=== PATIENT | male | born 1945 | race Asian ===

== ENCOUNTER 2017-04-15 15:01 | Emergency (ER) | payer OTHER ==
[2017-04-15 15:21] VITALS: PULSE 78
--- NOTE | 2017-04-15 15:44 | CPEKG ---
Heart Rate: 87 RR Interval: 690 P-R Interval: 168 QRSD Interval: 84 QT Interval: 344 QTC Interval: 414 P Chelsea: 50 QRS Chelsea: 54 T Wave Chelsea: 20 EKG Severity - BORDERLINE ECG - EKG Impression: SINUS RHYTHM EKG Impression: BORDERLINE INFERIOR Q WAVES Electronically Signed By: Rasheed Wan 16-Apr-2017 11:44:22
[2017-04-15 15:52] LABS: PLATELET COUNT 207 10^3/uL (150-400)
[2017-04-15] MEDS ORDERED: ACETAMINOPHEN/CODEINE 300/30MG TAB PO ONE ×2 (16:08→17:53)
[2017-04-15] MEDS ORDERED: NS 1,000 ML IV ONE (16:08)
[2017-04-15] MEDS ORDERED: IOPAMIDOL (ISOVUE-300) 100 ML BTL ONE (16:42)
--- NOTE | 2017-04-15 16:56 | EDPHY ---
HPI/HX/ROS/PE/MDM Narrative: CHIEF COMPLAINT: Lower back pain, syncope HISTORY OF PRESENT ILLNESS: The patient is a 72 y/o male with a history of diabetes complaining of lower back pain after a syncopal episode last night. He has been constipated for a few days. Last night he was feeling bloated and nauseated as he went to sleep. The bloating was interfering with his sleep so he got up and went to the bathroom. While on the toilet he was unable to have a bowel movement or pass gas. He burped a few times and stood up to go to the sink. As he turned, he lost consciousness and fell flat onto his back. He was unconscious for a few minutes and his reports that one eye was normal but the other eye was turned back. When he regained consciousness, he tried to sit up and felt a spasm in his back. He then vomited a few times. He stood up, took antacids and Tylenol, and went back to bed. This morning he still had lower back pain so he went to urgent care. Urgent care directed him to the ED. He remains bloated. He denies chest pain, lower back pain, shortness of breath, diarrhea, or any other associated symptoms. He denies cardiac history. REVIEW OF SYSTEMS: Aside from elements discussed in the HPI, a comprehensive 10-point review of systems was reviewed and is negative. PAST MEDICAL HISTORY: Diabetes SOCIAL HISTORY: at bedside, works in [employer], lives in [place] VITAL SIGNS: Reviewed by me GENERAL: Well-developed, well-nourished, resting comfortably in no respiratory distress. HEENT: Atraumatic. Eyes: No icterus, no injection. Mouth: moist mucous membranes. No erythema or lesions. Neck: supple with no adenopathy. No head trauma. LUNGS: Clear to auscultation bilaterally, no wheezes, rhonchi or rales. CARDIAC: Regular rate and rhythm, no rubs, murmurs or gallops. ABDOMEN: Mildly distended abdomen, soft, mild tenderness but no guarding or rebound. BACK: No CVA tenderness. Paraspinal tenderness and area of discomfort at upper lspine. No definitive midline tenderness. EXTREMITIES: No trauma. No edema. Range of motion is normal throughout. NEURO: Alert and oriented, Motor 5/5 in lower extremities. Sensation intact. SKIN: Warm and dry, no rash. PSYCHIATRIC: Normal mentation, no agitation. ED Course: 12-LEAD EKG: Please see the full report in [facility]. My interpretation: Normal sinus rhythm CT: Abdominal CT was obtained. I viewed the images myself on the PACS system. My interpretation of the images is: T-12 compression fracture. The radiologist interpretation is T-12 compression fracture. I discussed the CT findings with the patient. The patient presents with lower back pain after a fall. He has been constipated for a few days. Last night he got up to use the restroom and loss consciousness , falling to the ground. He vomited several times upon regaining consciousness. It is unclear how long he was unconscious or what caused him to lose consciousness. He currently is still bloated and has lower back pain. He denies chest pain, shortness of breath, or other cardiac indicators. He is mentating and moving normally without signs of neurologic deficits. Plan for EKG, labs, and CT of abdomen. 1649: The patient's EKG is normal and his troponin is negative. This indicates a cardiac cause for his symptoms is unlikely. 1734: I spoke with the radiologist. The patient's CT shows no intestinal abnormalities. There is a T-12 compression fracture. I feel he is safe to be released with pain medication for his fracture. Follow-up instructions and return precautions given. The patient agrees to this course of action. MDM: After obtaining the patients history and performing an examination, differential diagnosis considered included but was not limited to vasovagal syncope, arrhythmia, dehydration, and blood loss. Abdominal pain differential included appendicitis, cholecystitis, gastritis, pancreatitis, kidney stones, bowel obstruction, diverticulitis. - Data Points Imaging Results: Impression: 1. No significant abnormality seen within the abdomen and pelvis to explain patient's symptoms. 2. Mobile cecum transversely oriented in the upper abdomen anteriorly. Mild constipation is suspected. 3. Compression fracture T12 superior endplate with mild retropulsion posterior superior corner. This appears to be recent. Apparently, the patient fell last evening. Consider DEXA scan at some point to evaluate underlying bone mineral density has clinically directed. 4. Small hiatal hernia with mild thickening of the distal esophagus small nodes. Consider mild distal esophagitis. Findings discussed with Citlaly Crowe MD at 17:13 hour, 04/15/2017. Dictated By: Dirk Pool MD Imaging: Discussed imaging studies w/ anesthesia tech Radiologist Laboratory Results: Laboratory Results 04/15/17 15:40 04/15/17 15:40 Medications Given: Discontinued Medications Acetaminophen/Codeine Phosphate (Tylenol #3) 1 tab PO EDNOW ONE Stop: 04/15/17 16:09 Last Admin: 04/15/17 16:55 Dose: 1 tab Acetaminophen/Codeine Phosphate (Tylenol #3) 2 tab PO EDNOW ONE Stop: 04/15/17 17:54 Last Admin: 04/15/17 18:03 Dose: 2 tab Cyclobenzaprine HCl (Flexeril 10 Mg Prepack#3) 1 btl TAKEHOME EDNOW ONE Stop: 04/15/17 17:54 Last Admin: 04/15/17 18:02 Dose: 1 btl General Time Seen by Provider: 04/15/17 15:43 Initial Vital Signs: Initial Vital Signs Temperature (C) 36.6 C 04/15/17 15:15 Heart Rate 78 04/15/17 15:15 Respiratory Rate 17 04/15/17 15:15 O2 Sat (%) 98 04/15/17 15:15 O2 Delivery Mode Room Air Allergies/Adverse Reactions: No Known Allergies Allergy (Verified 04/21/17 12:52) Home Medications: Medication Instructions Recorded Glipizide/Metformin 10/16/12 Htn Med 10/16/12 Simvastatin 10/16/12 Vitorza 10/16/12 Acetaminophen/Codeine 300/30Mg 1 - 2 each PO Q6 PRN #10 tab 04/15/17 [Tylenol #3 (*)] Cyclobenzaprine [Flexeril 10 MG 10 mg PO TID PRN #15 tab 04/15/17 (*)] Departure - Departure Disposition: Home, Routine, Self-Care Clinical Impression: T12 compression fracture, Vasovagal syncope Constipation Qualifiers: Constipation type: unspecified constipation type Qualified Code(s): K59.00 - Constipation, unspecified Condition: Good Instructions: Cyclobenzaprine (By mouth), Constipation (ED), Vertebral Compression Fracture (ED), Syncope (ED), Syncope in Older Adults (ED) Additional Instructions: 1. Take Tylenol with Codeine and Flexeril as directed as needed for pain. Use your laxative and drink milk as needed for constipation. 2. Follow-up with your primary care provider for ongoing treatment of your spine fracture. 3. Return to the ED for any numbness or tingling or other worsening of condition. Referrals: Jim Gil MD [Primary Care Provider] - As per Instructions Prescriptions: Acetaminophen/Codeine 300/30Mg [Tylenol #3 (*)] 1 - 2 each PO Q6 PRN #10 tab PRN Reason: pain Cyclobenzaprine [Flexeril 10 MG (*)] 10 mg PO TID PRN #15 tab PRN Reason: Spasms Report Scribed for: Citlaly Crowe Report Scribed by: Jennifer Haines Date of Report: 04/15/17 Time of Report: 16:56 Physician Review and Approval Statement: Portions of this note were transcribed by a vice president medical affairs. I personally performed a history, physical exam, medical decision making, and confirmed accuracy of information the transcribed note.
[2017-04-15] MEDS ORDERED: CYCLOBENZAPRINE 10MG PREPACK#3 BTL TAKEHOME ONE (17:53)
[2017-04-15 18:10] VITALS: BP 171/85; RESP 18; TEMP 98.2; O2SAT 93
== END 2017-04-15 18:09 | disposition home or self-care (01) ==
DX: M48.54XA Collapsed vertebra, not elsewhere classified, thoracic region, initial encounter for fracture (principal); E11.9 Type 2 diabetes mellitus without complications; K59.00 Constipation, unspecified; R55 Syncope and collapse; Z79.84 Long term (current) use of oral hypoglycemic drugs
CPT/HCPCS: 74177; 93005; 99285; Q9967

== ENCOUNTER 2017-04-21 12:50 | Emergency (ER) | payer OTHER ==
[2017-04-21 12:56] VITALS: RESP 18; TEMP 97.3
--- NOTE | 2017-04-21 13:25 | EDPHY ---
H & P Stated Complaint: constipation HPI/ROS: CHIEF COMPLAINT: Constipation HISTORY OF PRESENT ILLNESS: The patient is a 72 y/o male with a history of diabetes complaining of constipation for the past 7 days. On 04/14/17, he had several small bowel movements. On 04/15 he vomited and had a syncopal episode after standing up and presented to the ED. An abdominal CT preformed during this visit did not reveal any intestinal abnormalities. There was a moderate amount of stool in his colon. Due to the syncopal episode he developed back pain and was prescribed Tylenol with codeine and a muscle relaxant. He stopped taking Tylenol #3 two days ago. Denies vomiting or syncope since ED visit. Since his ED visit 6 days ago, he has tried using suppositories, a fleets enema on and 04/20/17, smoothlax (polyethylene), liquid magnesium nitrate, and raisin bran for his constipation without any relief. In the past he has occasionally had episodes of constipation. His back is still painful (no leg weakness or numbness, no difficulty urinating). Denies urinary complaints, chest pain, shortness of breath, abdominal pain or other pertinent symptoms. Prior medical records reviewed including ED visit on 04/15/[address] Crowe. REVIEW OF SYSTEMS: A ten point review of systems was performed and is negative with the exception of the items mentioned in the HPI. Past medical history: Diabetes Past surgical history: Denies Family history: Denies Social history: Retired professor of chemistry; works in [employer] Lives in [facility] General Appearance: Alert. Vital signs reviewed. Eyes: Pupils equal and round, no conjunctival injection, no discharge. Anicteric. ENT, Mouth: Mucous membranes are moist, no oropharyngeal erythema or edema. Neck: No lymphadenopathy, supple. Respiratory: Lungs are clear to auscultation; no wheezes, rales, or rhonchi. Cardiovascular: Regular rate and rhythm; no murmur, rub, or gallop. Gastrointestinal: Abdomen is mildly distended. It is soft and nontender, no masses or organomegaly, bowel sounds normal. Skin: Warm and dry, no rashes on exposed skin, normal color. Back: Nontender to palpation over the thoracolumbar spine. No CVAT. Rectal: No stool within reach. Normal rectal tone. Extremities: No lower extremity edema, no calf tenderness or swelling. Neurological: Alert and oriented. Moving all four extremities easily and equally. Psychiatric: Normal affect. - Personal History Current Tetanus/Diphtheria Vaccine: Yes - Medical/Surgical History Hx Asthma: Yes Hx Chronic Respiratory Disease: No Hx Diabetes: Yes Hx Cardiac Disease: No Hx Renal Disease: No Hx Cirrhosis: No Hx Alcoholism: No Hx HIV/AIDS: No Hx Splenectomy or Spleen Trauma: No Other PMH: diabetes - Social History Smoking Status: Never smoked Constitutional: Initial Vital Signs Temperature (C) 36.3 C 04/21/17 12:54 Heart Rate 90 04/21/17 12:54 Respiratory Rate 18 04/21/17 12:54 Blood Pressure 152/100 H 04/21/17 12:54 O2 Sat (%) 95 04/21/17 12:54 O2 Delivery Mode Room Air Allergies/Adverse Reactions: No Known Allergies Allergy (Verified 04/21/17 12:52) Home Medications: Medication Instructions Recorded Glipizide/Metformin 10/16/12 Htn Med 10/16/12 Simvastatin 10/16/12 Vitorza 10/16/12 Acetaminophen/Codeine 300/30Mg 1 - 2 each PO Q6 PRN #10 tab 04/15/17 [Tylenol #3 (*)] Cyclobenzaprine [Flexeril 10 MG 10 mg PO TID PRN #15 tab 04/15/17 (*)] Medical Decision Making - Diagnostics Imaging: I viewed and interpreted images myself ED Course/Re-evaluation: The patient is a 72 y/o male with a history of diabetes presenting with inability to have a bowel movement for 7 days. On exam his abdomen is mildly distended and I am unable to reach stool on his rectal exam. During an ED visit on 04/15/17, 6 days ago, he had an abdominal CT that revealed no intestinal abnormalities and moderate amount of stool in his colon. Plan on soap enema. 300mL PO Magnesium Citrate administered. 1525: Reassessed patient; he has been unable to have a bowel movement after the enema and magnesium citrate. Plan on abdominal x-ray. 1556: Abdominal x-ray reveals a large amount of stool in the colon without any obstruction. 1559: Reassessed patient and discussed imaging findings. I have recommended that he takes Colace, Miralax, and magnesium citrate. He will need to follow up with his PCP in 2 days if he still does not have a bowel movement. Return precautions provided; patient is comfortable with this plan. He is noted to be hypertensive in ED and will have BP rechecked by PCP. Differential Diagnosis: DDX include but not limited to constipation (secondary to medications such as T3 , dehhdration, inactivit, lack of dietary fiber), obstipation, bowel obstruction. - Data Points Medications Given: Discontinued Medications Magnesium Citrate (Magnesium Citrate) 300 ml PO ONCE ONE Stop: 04/21/17 13:55 Last Admin: 04/21/17 14:02 Dose: 300 ml Departure - Departure Disposition: Home, Routine, Self-Care Clinical Impression: Constipation Qualifiers: Constipation type: drug induced constipation Qualified Code(s): K59.03 - Drug induced constipation Condition: Good Instructions: Constipation (ED), High Fiber Diet (ED) Additional Instructions: Take a stool softener; I recommend Colace. Continue to take Miralax every day. Take 1 bottle of magnesium citrate, you can buy this over the counter. Follow up with your primary care provider this week if you are still unable to have a bowel movement. Return to the Emergency Department for fever, chest pain, shortness of breath, increasing pain, or other worsening of condition. My email address is: [email or web address] Referrals: Jim Gil MD [Primary Care Provider] - As per Instructions Report Scribed for: Theresa Srinivasan Report Scribed by: Velia Clemens Date of Report: 04/21/17 Time of Report: 13:38 Physician Review and Approval Statement: 04/21/17 13:25 Portions of this note were transcribed by the medical coding instructor. I, Dr. Theresa Srinivasan, personally performed the history, physical exam, and medical decision- making; and confirmed the accuracy of the information in the transcribed note.
[2017-04-21] MEDS ORDERED: MAGNESIUM CITRATE 300 ML BOTTLE PO ONE (13:54)
[2017-04-21] MEDS ORDERED: MAGNESIUM CITRATE 300 ML BOTTLE ONE (13:54)
[2017-04-21 16:08] VITALS: BP 153/94; PULSE 98; O2SAT 96
== END 2017-04-21 16:07 | disposition home or self-care (01) ==
DX: K59.03 Drug induced constipation (principal); E11.9 Type 2 diabetes mellitus without complications; J45.909 Unspecified asthma, uncomplicated